=== PATIENT | male | born 1965 | race Two or more races ===

== ENCOUNTER 2017-02-12 08:40 | Day surgery (SDC) | payer BC ==
[~2017-02-12] VITALS: Ht 175.3 cm; Wt 133.8 kg
[2017-02-12] VITALS (8 sets, daily range): BP systolic 124–149; BP diastolic 87–95
[2017-02-12] MEDS ORDERED: cholesterol med PO (09:14)
[2017-02-12] MEDS ORDERED: blood pressure pill PO (09:14)
[2017-02-12] MEDS ORDERED: LR 1000ml 1,000 ML IVLG SCH (09:19)
--- NOTE | 2017-02-12 09:21 | Anethesia Preoperative Eval ---
Anesthesia Pre-op PMH/ROS General Date of Evaluation: Feb 12, 2017 Time of Evaluation: 10:17 Anesthesiologist: Guillermo ASA Score: ASA 3 Mallampati Score Class I : Soft palate, uvula, fauces, pillars visible Class II: Soft palate, uvula, fauces visible Class III: Soft palate, base of uvula visible Class IV: Only hard plate visible Mallampati Classification: Class III Surgeon: Deric Diagnosis: Abd Pain Surgical Procedure: Colonoscopy Anesthesia History: none Family History: no anesthesia problems Allergies: Coded Allergies: No Known Allergies (Unverified , 02/12/17) Medications: see eMAR Past Medical History Cardiovascular: Reports: HTN, other - HL Endocrine: Reports: DM Anesthesia Pre-op Phys. Exam Physician Exam Last Vital Signs Date Time Temp Pulse Resp B/P (MAP) Pulse Ox O2 Delivery O2 Flow Rate FiO2 02/12/17 09:08 98.0 89 18 149/89 98 Room Air Constitutional: NAD Neurologic: CN 2-12 intact Cardiovascular: RRR Respiratory: CTA Gastrointestinal: S/NT/ND Airway Exam Mallampati Score: Class III MO: limited ROM: limited Teeth: intact Anesthesia Pre-op A/P Risk Assessment & Plan Assessment: ASA 3 Plan: GA Status Change Before Surgery: No Shaheed Li MD Feb 12, 2017 09:21
--- NOTE | 2017-02-12 09:26 | Pre-Procedure Note/Attestation ---
Pre-Procedure Note/Attestation Complete Prior to Procedure Planned Procedure: not applicable Procedure Narrative: colonoscopy Indications for Procedure Pre-Operative Diagnosis: screening Attestation I attest that I discussed the nature of the procedure; its benefits; risks and complications; and alternatives (and the risks and benefits of such alternatives ), prior to the procedure, with the patient (or the patient's legal sales and service representative). I attest that, if there was a reasonable possibility of needing a blood transfusion, the patient (or the patient's legal sales and service representative) was given the [facility] standardized written summary, pursuant to the [place] Blood Safety Act ([place] Health and Safety Code # 1645, as amended). I attest that I re-evaluated the patient just prior to the surgery and that there has been no change in the patient's H&P, except as documented below: FRENCH SAAVEDRA Feb 12, 2017 09:26
--- NOTE | 2017-02-12 09:27 | Short Stay Surgery H&P ---
History of Present Illness History of Present Illness Chief Complaint screening colonoscopy HPI Juan Ramon Sheriff is a 51 year old male who was admitted on for Colon Screening Patient History Allergies: Coded Allergies: No Known Allergies (Unverified , 02/12/17) PAST MEDICAL HISTORY: (1) HTN (hypertension) (2) DM Past Surgeries: Social History: Medication History Scheduled [blood pressure pill], Unknown Dose PO DAILY, (Reported) [cholesterol med], Unknown Dose PO DAILY, (Reported) Review of Systems Cardiovascular: Reports: no symptoms Respiratory: Reports: no symptoms Skeletal: Reports: no symptoms Gastrointestinal: Reports: no symptoms Genitourinary: Reports: no symptoms Neurologic: Reports: no symptoms Endocrine: Reports: no symptoms Hematologic: Reports: no symptoms Physical Exam Vital Signs Last Vital Signs Date Time Temp Pulse Resp B/P (MAP) Pulse Ox O2 Delivery O2 Flow Rate FiO2 02/12/17 09:08 98.0 89 18 149/89 98 Room Air Skin: normal HENT: normal Heart: normal Lungs: normal Abdomen: normal Extremities: normal Plan Plan of Care colonoscopy Final Diagnosis: Attestation Are the patient's medical conditions optimized for surgery? Attestation Response: yes FRENCH SAAVEDRA Feb 12, 2017 09:27
[2017-02-12] MEDS ORDERED: Ketorolac 30mg Inj IV PRN (09:30)
[2017-02-12] MEDS ORDERED: Norco 7.5mg/325mg tab ORAL PRN (09:30)
[2017-02-12] MEDS ORDERED: Hydromorphone 0.5mg/0.5ml inj IVP PRN (09:30)
[2017-02-12] MEDS ORDERED: oxyCODONE HCL/Acetaminophen 5/325mg ORAL PRN (09:30)
[2017-02-12] MEDS ORDERED: Norco 5mg/325mg tab ORAL PRN (09:30)
[2017-02-12] MEDS ORDERED: Meperidine 25mg/0.5ml Inj (FOR RIGORS ONLY) IV PRN (09:30)
[2017-02-12] MEDS ORDERED: Metoclopramide 10mg/2ml Inj IVP PRN (09:30)
[2017-02-12] MEDS ORDERED: fentaNYL 100 mcg/2 mL IV PRN (09:30)
[2017-02-12] MEDS ORDERED: DiphenhydrAMINE 50mg/ml Inj IVP PRN (09:30)
[2017-02-12] MEDS ORDERED: Atropine Inj 1mg/10ml Syr IV PRN (09:30)
[2017-02-12] MEDS ORDERED: Ketorolac 60mg Inj IV PRN (09:30)
[2017-02-12] MEDS ORDERED: LORazepam Inj 2mg/ml 1ml IV PRN (09:30)
[2017-02-12] MEDS ORDERED: Midazolam 2mg/2ml Inj IVP PRN (09:30)
[2017-02-12] MEDS ORDERED: LR 1000ml ONE (10:00)
[2017-02-12] MEDS ORDERED: Propofol 200mg/20ml IV ONE (10:00)
[2017-02-12] MEDS ORDERED: Midazolam 2mg/2ml Inj ONE (10:00)
[2017-02-12] MEDS ORDERED: Lidocaine 1% MPF 10mg/ml 5ml ONE (10:00)
--- NOTE | 2017-02-12 10:26 | 48 Hour Post Anesthesia Eval ---
Post Anesthesia Evaluation Procedure: Colonoscopy Date of Evaluation: Feb 12, 2017 Time of Evaluation: 13:08 Blood Pressure Systolic: 152 0: 99 Pulse Rate: 78 Respiratory Rate: 18 Temperature (Fahrenheit): 98.2 O2 Sat by Pulse Oximetry: 100 Airway: patent Nausea: No Vomiting: No Pain Intensity: 1 Hydration Status: adequate Cardiopulmonary Status: Stable Mental Status/LOC: patient returned to baseline Follow-up Care/Observations: 0 Post-Anesthesia Complications: 0 Follow-up care needed: ready to discharge Shaheed Li MD Feb 12, 2017 10:26
--- NOTE | 2017-02-12 10:26 | Immediate Post-Op Evaluation ---
Immediate Post-Op Evalulation Immediate Post-Op Evalulation Procedure: Colonoscopy Date of Evaluation: Feb 12, 2017 Time of Evaluation: 10:58 IV Fluids: 500 LR Blood Products: 0 Estimated Blood Loss: 1 Urinary Output: 0 Blood Pressure Systolic: 124 Blood Pressure Diastolic: 87 Pulse Rate: 76 Respiratory Rate: 16 O2 Sat by Pulse Oximetry: 100 Temperature (Fahrenheit): 97.7 Pain Score (1-10): 1 Nausea: No Vomiting: No Complications 0 Patient Status: awake, reacts, patent, none Hydration Status: adequate Shaheed Li MD Feb 12, 2017 10:25
--- NOTE | 2017-02-12 10:38 | Endoscopy Procedure Note ---
Endoscopy Procedure Note Indication for Procedure: screening Procedures Performed: colonoscopy Operative Findings/Diagnosis: 2 polyps Specimen: yes Pt Tolerated Procedure Well: Yes Estimated Blood Loss: none Anesthesiologist: rosa Anesthesia: MAC Implant(s) used?: No 50 yrs or older w/o bx or poly: No 10yrs. F/U not recommended: Yes If not recommended, why?: Above average risk 10 yrs. F/U needed: Yes 18 years or older w/prev. colo: No FRENCH SAAVEDRA Feb 12, 2017 10:38
--- NOTE | 2017-02-13 01:00 | Procedure Note ---
DATE OF PROCEDURE: 02/12/2017 SURGEON: Krunal Leos M.D. PROCEDURE: Colonoscopy with biopsy. ANESTHESIOLOGIST: Shaheed Li M.D. INSTRUMENT: Olympus adult flexible upper colonoscope. INDICATION: Screening colonoscopy. REASON FOR PROCEDURE: The procedure, risks, benefits, and possible consequences, including hemorrhage, aspiration, perforation and infection, and alternative treatments, were explained to the patient/legal guardian by Dr. Krunal Leos and the patient/legal guardian understood and accepted these risks. DESCRIPTION OF PROCEDURE: After informed consent was obtained and the patient was adequately sedated, first rectal exam was performed, which shows positive for internal hemorrhoid. Then, the scope was advanced from the rectum into the cecum documented by appendiceal orifice, ileocecal valve, and right upper quadrant palpation. Quality of prep was fair. The patient had total two colonic polyps one in the ascending colon and one in the sigmoid, both were small and removed with cold biopsy forceps technique. The patient has scattered diverticulosis in the sigmoid colon. The patient has internal hemorrhoids seen on the retroflexion of the camera in the rectum. The patient tolerated the procedure very well without any complication. SUMMARY OF FINDINGS: 1. Two colonic polyps removed, see above for details. 2. Diverticulosis. 3. Internal hemorrhoids. RECOMMENDATIONS: 1. Follow up biopsies and treat accordingly. 2. We will recommend repeat colonoscopy in five years. I want to thank, Dr. Krunal Copeland, for this kind referral. Krunal Leos M.D. DR: SHAISTA JOB#: [id number] CC: Krunal Copeland M.D.; Fax#: [phone]
--- NOTE | 2017-02-13 17:59 | Cardiology Report ---
APPROVED REPORT EKG Measurement Heart [id number] Normal sinus rhythm Normal ECG
== END 2017-02-12 11:50 | disposition home or self-care (01) ==
LOC: GAS 08:40
DX: Z12.11 Encounter for screening for malignant neoplasm of colon (principal); K57.90 Diverticulosis of intestine, part unspecified, without perforation or abscess without bleeding; K64.8 Other hemorrhoids; I10 Essential (primary) hypertension; E11.9 Type 2 diabetes mellitus without complications; D12.2 Benign neoplasm of ascending colon; D12.5 Benign neoplasm of sigmoid colon
CPT/HCPCS: 45380; 82962; 93005; J2250; J2704; J7120; 94003; 94150